=== PATIENT | male | born 1960 | race Caucasian/White ===

== ENCOUNTER 2017-01-15 20:19 | Emergency (ER) | payer OTHER ==
[~2017-01-15] VITALS: Ht 175.3 cm; Wt 81.9 kg
[~2017-01-15 20:19] MED LIST: MOTRIN600 MG PO; PRILOSEC20 MG PO; SUBOXONE 8 MG-1 EAC2 SL; TRAZODONE HCL50 MG PO
[2017-01-15] MEDS ORDERED: KEFLEX500 MG PO (23:36)
[2017-01-16 00:07] VITALS: BP 142/96
== END 2017-01-16 00:07 | disposition home or self-care (01) ==
LOC: EME 20:19
DX: L03.011 Cellulitis of right finger (principal); F17.200 Nicotine dependence, unspecified, uncomplicated; Z88.0 Allergy status to penicillin; Z88.6 Allergy status to analgesic agent
CPT/HCPCS: 99281; 99283